=== PATIENT | female | born 1995 | race Caucasian/White ===

== ENCOUNTER 2017-04-26 10:59 | Emergency (ER) | payer MEDICAID ==
[~2017-04-26] VITALS: Ht 167.6 cm; Wt 76.0 kg
[~2017-04-26 10:59] MED LIST: LEVO.05 PO; TRAM100T19 PO; TRAZ50TA4 PO
[2017-04-26 11:01] VITALS: BP 120/93; PULSE 125; RESP 18; TEMP 100.2; O2SAT 99
--- NOTE | 2017-04-26 11:12 | PD ---
Physical Exam Time Seen by Provider: 11:10 Narrative 21-year-old female presents to the emergency department complaining of left upper quadrant abdominal pain since yesterday. Reports nausea without vomiting. MAXIMUM TEMPERATURE of 101.0. Reports pain is worse with deep menstruation. Denies shortness of breath. Denies diarrhea. Says she thinks she may have passed a kidney stone on , but had no evaluation to determine it was a kidney stone; is making an assumption. Denies history of kidney stones. Denies hematuria. Reports dysuria. Patient seen in triage. Vital signs reviewed. Patient awaiting medical bed. Data Data Last Documented VS Vital Signs Date Time Temp Pulse Resp B/P (MAP) Pulse Ox O2 Delivery O2 Flow Rate FiO2 04/26/17 11:01 100.2 125 18 120/93 (102) 99 Room Air Orders Orders Complete Blood Count With Diff (04/26/17 11:12) Comprehensive Metabolic Panel (04/26/17 11:12) Lipase (04/26/17 11:12) Lactic Acid (04/26/17 11:12) Prothrombin Time / Inr (Pt) (04/26/17 11:12) Act Partial Throm Time (Ptt) (04/26/17 11:12) Urinalysis - C+S If Indicated (04/26/17 11:12) Iv Access Insert/Monitor (04/26/17 11:12) MDM Supervised Visit with KIRA: Malena Avitia Apr 26, 2017 11:12
[2017-04-26] MEDS ORDERED: SODIUM CHLORIDE 0.9% FLUSH 10 ML FLUSH IV FLUSH PRN (11:15)
[2017-04-26] MEDS ORDERED: TRAM50TA PO (11:57)
[2017-04-26] MEDS ORDERED: TRAZ50TA12 PO (11:57)
[2017-04-26] MEDS ORDERED: ORTH7TAB PO (11:57)
[2017-04-26] MEDS ORDERED: LEVO.05 PO (11:57)
[2017-04-26 12:15] LABS: AUTOMATED NEUTROPHIL # 14.8 TH/MM3 (1.8-7.7); BASOPHIL % 0.2 % (0.0-2.0); EOSINOPHIL % 0.2 % (0.0-4.0); HEMATOCRIT 38.8 % (35.0-46.0); HEMO FLAGS DIFF FINAL; LYMPH % 7.7 % (9.0-44.0); LYMPHOCYTE # 1.3 TH/MM3 (1.0-4.8); MEAN CELL VOLUME 88.3 FL (80.0-100.0); MEAN CORPUSCULAR HEMOGLOBIN 29.8 PG (27.0-34.0); MEAN CORPUSCULAR HGB CONC 33.8 % (32.0-36.0); MONO % 3.9 % (0.0-8.0); PLATELET COUNT 279 TH/MM3 (150-450); RED CELL DISTRIBUTION WIDTH 13.2 % (11.6-17.2); WHITE BLOOD COUNT 16.9 TH/MM3 (4.0-11.0)
[2017-04-26 12:16] VITALS: TEMP 100.5; O2SAT 98
[2017-04-26 12:21] LABS: BACTERIA, URINE OCC /hpf; BLOOD, URINE SMALL (NEG); COMMENT (UR) CULTURE INDICATED; CULTURE IF INDICATED CULTURE INDICATED; GLUCOSE,URINE NEG (NEG); KETONE, URINE NEG (NEG); NITRITE,URINE NEG (NEG); PH, URINE 6.5 (5.0-8.5); SQUAMOUS EPITHELIAL CELL URINE 1 /hpf (0-5); URINE COLOR LIGHT-YELLOW (YELLW/STRAW)
[2017-04-26 12:21] LABS: APTT (PATIENT) 25.4 SEC (24.3-30.1); INTERNATIONAL NORMALIZED RATIO 0.9 RATIO
[2017-04-26] MEDS ORDERED: KETOROLAC TROMETHAMINE 30 MG/ML (IVP) VIAL IV PUSH ONE (12:30)
[2017-04-26] MEDS ORDERED: SODIUM CHLOR 0.9% 1000 ML INJ 1,000 ML IV ONE ×3 (12:30→16:15)
[2017-04-26] MEDS ORDERED: ONDANSETRON HCL 4 MG/2 ML VIAL IV PUSH ONE ×2 (12:30→15:15)
[2017-04-26 12:31] LABS: ALT (GPT) 20 U/L (10-53)
[2017-04-26 12:33] LABS: ALKALINE PHOSPHATASE 72 U/L (45-117); TOTAL BILIRUBIN ADULT 0.6 MG/DL (0.2-1.0)
[2017-04-26 12:39] LABS: ANION GAP 8 MEQ/L (5-15); AST (GOT) 16 U/L (15-37); BICARBONATE 23.9 MEQ/L (21.0-32.0); CHLORIDE 104 MEQ/L (98-107); GLOMERULAR FILTRATION RATE 100 ML/MIN (>89); POTASSIUM 4.2 MEQ/L (3.5-5.1); SODIUM (NA) 136 MEQ/L (136-145)
--- NOTE | 2017-04-26 12:40 | RADRPT ---
EXAM DATE/TIME: 04/26/2017 12:06 [facility] COMPARISON: No previous studies available for comparison. INDICATIONS : Chest pain and shortness. MEDICAL HISTORY : None. SURGICAL HISTORY : None. ENCOUNTER: Initial ACUITY: 1 day PAIN SCORE: 8/10 LOCATION: Bilateral chest FINDINGS: PA and lateral views of the chest demonstrate the lungs to be symmetrically aerated without evidence of mass, infiltrate or effusion. The cardiomediastinal contours are unremarkable. Osseous structure s are intact. CONCLUSION: No acute disease. No significant change has occurred. Renaldo Moulton MD on April 26, 2017 at 12:37 Board Certified Radiologist. This report was verified electronically.
[2017-04-26 12:41] LABS: BLOOD UREA NITROGEN 6 MG/DL (7-18)
--- NOTE | 2017-04-26 14:03 | RADRPT ---
EXAM DATE/TIME: 04/26/2017 13:33 [facility] COMPARISON: No previous studies available for comparison. INDICATIONS : Left upper lateral quadrant pain. ORAL CONTRAST: No oral contrast ingested. RADIATION DOSE: 7.78 CTDIvol (mGy) MEDICAL HISTORY : None SURGICAL HISTORY : None. ENCOUNTER: Initial ACUITY: 3 days PAIN SCALE: 4/10 LOCATION: Left upper quadrant TECHNIQUE: Volumetric scanning of the abdomen and pelvis was performed. Using automated exposure control and ad justment of the mA and/or kV according to patient size, radiation dose was kept as low as reasonably achievable to obtain optimal diagnostic quality images. DICOM format image data is available electro nically for review and comparison. FINDINGS: LOWER LUNGS: The visualized lower lungs are clear. LIVER: Homogeneous density without lesion. There is no dilation of the biliary tree. No calcified gallston es. SPLEEN: Normal size without lesion. PANCREAS: Within normal limits. KIDNEYS: Normal in size and shape. There is no mass, stone, or hydronephrosis. ADRENAL GLANDS: Within normal limits. VASCULAR: There is no aortic aneurysm. BOWEL/MESENTERY: The stomach, small bowel, and colon demonstrate no acute abnormality. There is no free intraperitone al air or fluid. ABDOMINAL WALL: Within normal limits. RETROPERITONEUM: There is no lymphadenopathy. BLADDER: The bladder is mildly to moderately distended with urine. There were no actual filling defects. No wa ll thickening or mass. REPRODUCTIVE: Within normal limits. INGUINAL: There is no lymphadenopathy or hernia. MUSCULOSKELETAL: Within normal limits for patient age. CONCLUSION: 1. No acute disease. 2. No evidence of obstructive uropathy or nephrolithiasis. 3. Distended urinary bladder. Rick Marie MD on April 26, 2017 at 13:58 Board Certified Radiologist. This report was verified electronically.
[2017-04-26] MEDS ORDERED: LEVOFLOXACIN 500 MG PREMIX INJ 100 ML IV ONE (14:30)
[2017-04-26] MEDS ORDERED: traMADol HCL 50 MG TAB PO ONE (14:30)
--- NOTE | 2017-04-26 14:48 | PD ---
HPI Chief Complaint: Abdominal Pain Time Seen by Provider: 12:01 Travel History International Travel<30 days: No Contact w/Intl Traveler<30days: No Traveled to known affect area: No History of Present Illness HPI is a 21-year-old female who comes in complaining of pain under her left breast radiating around to her back. She says this started a few days ago and got worse last night. She says she noticed she felt like she had a fever last night. She has not had nausea or vomiting. She says that she thinks she might passed a kidney stone on Sunday. She says she had flank pain at that point pain coming and going in waves for about 12 hours. She says that her family members have had kidney stones in the past and told her that that is what it feels like. She says she has interstitial cystitis and fibromyalgia. She denies vaginal discharge. She does have cough and runny nose. PFSH Past Medical History Insomnia: Yes Medical other: Yes (fibromilasia ) Thyroid Disease: Yes (HYPOTHYROIDISM) ?: Not LMP: march 2017 : 1 Para: 1 Miscarriage: 0 : 0 Past Surgical History Surgical History: No Previous Surgery Social History Alcohol Use: No Tobacco Use: No Substance Use: No Allergies-Medications (Allergen,Severity, Reaction): Coded Allergies: morphine (Unverified Allergy, Severe, Hives, 04/26/17) penicillin G (Unverified Allergy, Severe, 04/26/17) Reported Meds & Prescriptions Reported Meds & Active Scripts Active Levaquin (Levofloxacin) 500 Mg Tablet 500 Mg PO DAILY 10 Days Reported Ortho-Novum (Norethindrone-Ethinyl Estradiol) 0.5/0.75/1-35 Mg-Mcg Tab 1 Tab PO DAILY Synthroid (Levothyroxine Sodium) 50 Mcg Tab 50 Mcg PO DAILY Trazodone (Trazodone HCl) 50 Mg Tab 50 Mg PO HS Tramadol (Tramadol HCl) 50 Mg Tab 100 Mg PO BID Review of Systems Except as stated in HPI: all other systems reviewed are Neg General / Constitutional: Positive: Fever Eyes: No: Blurred Vision HENT: No: Headaches, Lightheadedness Respiratory: Positive: Cough, No: Shortness of Breath Gastrointestinal: Positive: Abdominal Pain Genitourinary: Positive: Flank Pain Musculoskeletal: Positive: Pain Skin: Positive Rash, No Change in Pigmentation Neurologic: No: Weakness, Dizziness Physical Exam Narrative GENERAL: Awake and alert, crying. SKIN: Focused skin assessment warm/dry. Small macules to the left arm. No surrounding erythema or signs of infection. HEAD: Atraumatic. Normocephalic. EYES: Pupils equal and round. No scleral icterus. Struck another movements intact. ENT: Mucous membranes pink and moist. NECK: Trachea midline. No JVD. CARDIOVASCULAR: Regular rate and rhythm. No murmur appreciated. Tender to palpation to the ribs under the left breast. RESPIRATORY: No accessory muscle use. Clear to auscultation. Breath sounds equal bilaterally. GASTROINTESTINAL: Abdomen soft, nondistended. Tender to palpation of the suprapubic area. No rebound or guarding. MUSCULOSKELETAL: No obvious deformities. No clubbing. No cyanosis. No edema. NEUROLOGICAL: Awake and alert. No obvious cranial nerve deficits. Motor grossly within normal limits. Normal speech. PSYCHIATRIC: Appropriate mood and affect; insight and judgment normal. Data Data Last Documented VS Vital Signs Date Time Temp Pulse Resp B/P (MAP) Pulse Ox O2 Delivery O2 Flow Rate FiO2 04/26/17 15:37 100.0 119 12 130/68 (88) 97 Room Air Orders Orders Complete Blood Count With Diff (04/26/17 11:12) Comprehensive Metabolic Panel (04/26/17 11:12) Lipase (04/26/17 11:12) Lactic Acid (04/26/17 11:12) Prothrombin Time / Inr (Pt) (04/26/17 11:12) Act Partial Throm Time (Ptt) (04/26/17 11:12) Urinalysis - C+S If Indicated (04/26/17 11:12) Iv Access Insert/Monitor (04/26/17 11:12) Ecg Monitoring (04/26/17 11:12) Oximetry (04/26/17 11:12) Sodium Chloride 0.9% Flush (Ns Flush) (04/26/17 11:15) Ed Urine Pregnancytest Poc (04/26/17 11:12) Blood Culture (04/26/17 11:12) Chest, Pa & Lat (04/26/17 11:12) Ct Abd/Pel W/O Iv Contrast (04/26/17 ) Sodium Chlor 0.9% 1000 Ml Inj (Ns 1000 M (04/26/17 12:30) Ketorolac Inj (Toradol Inj) (04/26/17 12:30) Ondansetron Inj (Zofran Inj) (04/26/17 12:30) Urine Culture (04/26/17 11:30) Tramadol (Ultram) (04/26/17 14:30) Levofloxacin 500 Mg Premix Inj (Levaquin (04/26/17 14:30) Influenzae A/B Antigen (04/26/17 14:19) Ondansetron Inj (Zofran Inj) (04/26/17 15:15) Sodium Chlor 0.9% 1000 Ml Inj (Ns 1000 M (04/26/17 15:45) Acetaminophen (Tylenol) (04/26/17 16:15) Sodium Chlor 0.9% 1000 Ml Inj (Ns 1000 M (04/26/17 16:15) Ed Discharge Order (04/26/17 16:48) Labs Laboratory Tests Test 04/26/17 11:30 04/26/17 11:40 Urine Color LIGHT-YELLOW Urine Turbidity CLEAR Urine pH 6.5 Urine Specific [place] 1.006 Urine Protein NEG mg/dL Urine Glucose (UA) NEG mg/dL Urine Ketones NEG mg/dL Urine Occult Blood SMALL Urine Nitrite NEG Urine Bilirubin NEG Urine Urobilinogen LESS THAN 2.0 MG/DL Urine Leukocyte Esterase LARGE Urine RBC 6 /hpf Urine WBC 88 /hpf Urine Squamous Epithelial Cells 1 /hpf Urine Bacteria OCC /hpf Microscopic Urinalysis Comment CULTURE INDICATED White Blood Count 16.9 TH/MM3 Red Blood Count 4.40 MIL/MM3 Hemoglobin 13.1 GM/DL Hematocrit 38.8 % Mean Corpuscular Volume 88.3 FL Mean Corpuscular Hemoglobin 29.8 PG Mean Corpuscular Hemoglobin Concent 33.8 % Red Cell Distribution Width 13.2 % Platelet Count 279 TH/MM3 Mean Platelet Volume 9.1 FL Neutrophils (%) (Auto) 88.0 % Lymphocytes (%) (Auto) 7.7 % Monocytes (%) (Auto) 3.9 % Eosinophils (%) (Auto) 0.2 % Basophils (%) (Auto) 0.2 % Neutrophils # (Auto) 14.8 TH/MM3 Lymphocytes # (Auto) 1.3 TH/MM3 Monocytes # (Auto) 0.7 TH/MM3 Eosinophils # (Auto) 0.0 TH/MM3 Basophils # (Auto) 0.0 TH/MM3 CBC Comment DIFF FINAL Differential Comment Prothrombin Time 10.0 SEC Prothromb Time International Ratio 0.9 RATIO Activated Partial Thromboplast Time 25.4 SEC Blood Urea Nitrogen 6 MG/DL Creatinine 0.72 MG/DL Random Glucose 89 MG/DL Total Protein 7.8 GM/DL Albumin 3.7 GM/DL Calcium Level 9.1 MG/DL Alkaline Phosphatase 72 U/L Aspartate Amino Transf (AST/SGOT) 16 U/L Alanine Aminotransferase (ALT/SGPT) 20 U/L Total Bilirubin 0.6 MG/DL Sodium Level 136 MEQ/L Potassium Level 4.2 MEQ/L Chloride Level 104 MEQ/L Carbon Dioxide Level 23.9 MEQ/L Anion Gap 8 MEQ/L Estimat Glomerular Filtration Rate 100 ML/MIN Lactic Acid Level 1.0 mmol/L Lipase 74 U/L [facility] Medical Decision Making Medical Screen Exam Complete: Yes Emergency Medical Condition: Yes Medical Record Reviewed: Yes Differential Diagnosis UTI versus influenza versus viral illness versus renal stone versus pneumonia Narrative Course Patient is a 21-year-old female comes in complaining of fever and left-sided pain under her rib cage as well as flank pain. Exam shows tenderness to the left ribs. She does have a rash to her left arm, which she says she sustained a week ago after laying on the beach with [place] boyfriend. She says this is improving and seems to be getting better on its own. IV established, labs sent. Labs showed elevated white blood cell count. Urine is positive for UTI. Patient given a dose of Levaquin. Given IV fluids, Toradol, pain medicine. Given a dose of Levaquin Chest x-ray shows no acute abnormalities. CT abdomen and pelvis shows no acute abnormalities. Last 24 hours Impressions Chest X-Ray 04/26/17 1112 Signed Impressions: Service Date/Time: April 12:06 - CONCLUSION: No acute disease. No significant change has occurred. Renaldo Moulton MD Abdomen/Pelvis CT 04/26/17 0000 Signed Impressions: Service Date/Time: , April 26, 2017 13:33 - CONCLUSION: 1. No acute disease. 2. No evidence of obstructive uropathy or nephrolithiasis. 3. Distended urinary bladder. Rick F. Frank, MD Patient given her dose of tramadol. She will be discharged with prescription for Levaquin. She is advised to drink plenty of fluids. Advised follow-up with her doctors. Advised to return to the ED as needed for any worsening symptoms. Patient remained tachycardic throughout her stay here. She does say she feels much better, but her fibromyalgia pain is bothering her now. She says she thinks her heart is going fast just because she is having problems at the fibromyalgia. She says this is a normal symptom for her and she is comfortable with going home at this time. Diagnosis Primary Impression: Pyelonephritis Patient Instructions: General Instructions, Kidney Infection (ED) Additional Instructions: Take all of your antibiotic. Take Tylenol or ibuprofen as needed for fever or pain. Drink plenty of fluids. Follow-up with her doctors. Return to the ED as needed for any worsening symptoms. Scripts Levofloxacin (Levaquin) 500 Mg Tablet 500 MG PO DAILY for Infection for 10 Days, #10 TAB 0 Refills Prov: Shirley Calvo MD 04/26/17 Disposition: 01 DISCHARGE HOME Condition: Stable Shirley Calvo MD Apr 26, 2017 14:48
[2017-04-26 15:37] VITALS: BP 130/68; PULSE 119; RESP 12; TEMP 100; O2SAT 97
[2017-04-26] MEDS ORDERED: ACETAMINOPHEN 325 MG TAB PO ONE (16:15)
[2017-04-26] MEDS ORDERED: LEVA500T20 PO (16:35)
[2017-04-26 16:56] VITALS: TEMP 99.7
== END 2017-04-26 17:00 | disposition home or self-care (01) ==
LOC: NEPD 10:59
DX: N12 Tubulo-interstitial nephritis, not specified as acute or chronic (principal); B96.20 Unspecified Escherichia coli [E. coli] as the cause of diseases classified elsewhere; R07.89 Other chest pain; R05 Cough; R50.9 Fever, unspecified; R00.0 Tachycardia, unspecified; R21 Rash and other nonspecific skin eruption; E03.9 Hypothyroidism, unspecified; Z87.39 Personal history of other diseases of the musculoskeletal system and connective tissue
CPT/HCPCS: 71020; 74176; 80053; 81001; 83605; 83690; 84703; 85025; 85610; 85730; 87040; 87077; 87086; 87186; 87804; 96374; 96375; 96376; 99285; J1885; J1956; J2405; J7030